=== PATIENT | male | born 1970 | race Caucasian/White ===

== ENCOUNTER 2017-02-18 08:27 | Emergency (ER) | payer MEDICAID ==
[2017-02-18 08:44] VITALS: BP 133/97; RESP 16
--- NOTE | 2017-02-18 08:49 | CPEKG ---
Heart Rate: 48 RR Interval: 1250 P-R Interval: 152 QRSD Interval: 92 QT Interval: 492 QTC Interval: 440 P [place]: 40 QRS [place]: -6 T Wave [place]: 42 EKG Severity - OTHERWISE NORMAL ECG - EKG Impression: SINUS BRADYCARDIA Electronically Signed By: Reji Velazquez 18-Feb-2017 10:36:25
--- NOTE | 2017-02-18 08:55 | EDPHY ---
H & P Time Seen by Provider: 02/18/17 08:40 HPI/ROS: Chief complaint. Abdominal pain HPI. 46-year-old male presents emergency department with chest and abdominal pain that began this morning. He began vomiting 2 days ago and has a history of cyclic vomiting syndrome. He has had similar symptoms previously and this tends to lead to dehydration. He is concerned now about dehydration. His discomfort is described as upper abdomen and dull. No radiation. He has had cups as well as nausea vomiting. No shortness of breath. Symptoms are not worse with exertion or breathing. He was out of Nexium for 2 days before his symptoms started. No cough or fever. ROS Constitutional. no fever/chills, no weakness Eyes. no problems with vision ENT. no sore throat, no nasal drainage Cardiovascular. no chest pain Respiratory. no shortness of breath, no cough Abdominal. Upper abdominal pain with nausea and vomiting . no problems urinating MS. no calf pain/swelling, no neck/back pain, no joint pain Skin. no rash Lymph. no swollen glands Neuro. no headache, no dizziness, no difficulty walking or with speech Past Medical/Surgical History: Past medical history significant for alcoholism, back surgery, GERD, cyclic vomiting syndrome, atrial fibrillation Social History: Single, daily smoker, no alcohol Smoking Status: Current every day smoker Physical Exam: General Appearance: Alert well-developed male moderate distress vital signs are stable Eyes: Pupils equal and round no pallor or injection. ENT, Mouth: Mucous membranes are moist. Respiratory: There are no retractions, lungs are clear to auscultation. Cardiovascular: Regular rate and rhythm. Gastrointestinal: Abdomen is soft with diffuse tenderness along the upper abdomen. No masses. Normal bowel sounds Neurological: Awake and alert, sensory and motor exams grossly normal. Skin: Warm and dry, no rashes. Musculoskeletal: Neck is supple nontender. Extremities symmetrical, full range of motion. Psychiatric: Patient is oriented X 3, there is no agitation. Constitutional: Initial Vital Signs Temperature (C) 36.4 C 02/18/17 08:30 Heart Rate 56 L 02/18/17 08:30 Respiratory Rate 16 02/18/17 08:30 Blood Pressure 133/97 H 02/18/17 08:30 O2 Sat (%) 96 02/18/17 08:30 O2 Delivery Mode Room Air Allergies/Adverse Reactions: No Known Allergies Allergy (Verified 02/18/17 08:41) Home Medications: Medication Instructions Recorded Esomeprazole Mag Trihydrate 40 mg PO DAILY 06/22/15 [Nexium] Esomeprazole Magnesium 40 mg PO DAILY #14 capsule. 02/18/17 Promethazine HCl [Phenergan 25mg 25 mg PO Q4-6PRN PRN #10 tab 02/18/17 (*)] Medical Decision Making - Diagnostics EKG Interpretation: EKG interpreted by me shows sinus bradycardia. Normal interval. Left axis deviation. QRS is otherwise normal. There is no significant ST elevation or depression. The rate is 48 Imaging Results: Imaging Impressions Chest X-Ray 02/18/17 09:04 Impression: Bronchitis with left basilar atelectasis. One-view chest x-ray reviewed by me shows bronchitis with left basilar atelectasis. No evidence for pneumonia Procedures: IV normal saline. Zofran for nausea vomiting. GI cocktail. ED Course/Re-evaluation: Re-evaluation 9:50 a.m.--patient is stable. He says he slightly nauseated still. No vomiting. He is complaining of back pain from the vomiting. He is given IV Toradol and further Zofran. Recheck again 1025 a.m.. No further vomiting. The patient and I discussed laboratory evaluation and imaging study results. We discussed treatment plan including criteria for return importance of follow-up and further evaluation. He expresses understanding and agreement Differential Diagnosis: Patient is a history of cyclic vomiting syndrome. I have considered pancreatitis as well. Considered peptic ulcer disease. I have considered dehydration. I considered acute coronary syndrome - Data Points Laboratory Results: Laboratory Results 02/18/17 08:44 02/18/17 08:44 02/18/17 02/18/17 08:44 08:44 WBC 10.17 10^3/uL H 10^3/uL (3.80-9.50) RBC 4.81 10^6/uL 10^6/uL (4.40-6.38) Hgb 16.1 g/dL g/dL (13.7-17.5) Hct 46.3 % % (40.0-51.0) MCV 96.3 fL fL (81.5-99.8) MCH 33.5 pg pg (27.9-34.1) MCHC 34.8 g/dL g/dL (32.4-36.7) RDW 13.2 % % (11.5-15.2) Plt Count 203 10^3/uL 10^3/uL (150-400) MPV 10.6 fL fL (8.7-11.7) Neut % (Auto) 68.3 % % (39.3-74.2) Lymph % (Auto) 20.3 % % (15.0-45.0) [place] % (Auto) 9.8 % % (4.5-13.0) Eos % (Auto) 1.0 % % (0.6-7.6) Baso % (Auto) 0.3 % % (0.3-1.7) Nucleat RBC Rel Count 0.0 % % (0.0-0.2) Absolute Neuts (auto) 6.95 10^3/uL H 10^3/uL (1.70-6.50) Absolute Lymphs (auto) 2.06 10^3/uL 10^3/uL (1.00-3.00) Absolute Monos (auto) 1.00 10^3/uL H 10^3/uL (0.30-0.80) Absolute Eos (auto) 0.10 10^3/uL 10^3/uL (0.03-0.40) Absolute Basos (auto) 0.03 10^3/uL 10^3/uL (0.02-0.10) Absolute Nucleated RBC 0.00 10^3/uL 10^3/uL (0-0.01) Immature Gran % 0.3 % % (0.0-1.1) Immature Gran # 0.03 10^3/uL 10^3/uL (0.00-0.10) Sodium 136 mEq/L mEq/L (134-144) Potassium 4.2 mEq/L mEq/L (3.5-5.2) Chloride 103 mEq/L mEq/L (97-110) Carbon Dioxide 21 mEq/l L mEq/l (22-31) Anion Gap 12 mEq/L mEq/L (8-16) BUN 18 mg/dL mg/dL (7-23) Creatinine 0.8 mg/dL mg/dL (0.7-1.3) Estimated GFR > 60 Glucose 127 mg/dL H mg/dL (70-100) Calcium 9.6 mg/dL mg/dL (8.5-10.4) Troponin I < 0.012 ng/mL ng/mL (0-0.034) Lipase 65.0 IU/L IU/L (23-300) Medications Given: Discontinued Medications Al Hydroxide/Mg Hydroxide (Maalox Susp) 30 ml PO ONCE ONE Stop: 02/18/17 09:06 Last Admin: 02/18/17 09:13 Dose: 30 ml Hyoscyamine Sulfate (Levsin, Hyomax-Sl) 0.25 mg PO ONCE ONE Stop: 02/18/17 09:06 Last Admin: 02/18/17 09:13 Dose: 0.25 mg Sodium Chloride (Ns) 1,000 mls @ 0 mls/hr IV ONCE ONE; Wide Open PRN Reason: Protocol Stop: 02/18/17 09:13 Last Admin: 02/18/17 09:14 Dose: 1,000 mls Ketorolac Tromethamine (Toradol) 30 mg IVP EDNOW ONE Stop: 02/18/17 09:59 Last Admin: 02/18/17 10:21 Dose: 30 mg Lidocaine (Lidocaine 2% Viscous) 15 ml PO ONCE ONE Stop: 02/18/17 09:06 Last Admin: 02/18/17 09:13 Dose: 15 ml Ondansetron HCl (Zofran) 4 mg IVP EDNOW ONE Stop: 02/18/17 09:59 Last Admin: 02/18/17 10:21 Dose: 4 mg Departure - Departure Disposition: Home, Routine, Self-Care Clinical Impression: Abdominal pain Qualifiers: Abdominal location: epigastric Qualified Code(s): R10.13 - Epigastric pain Cyclical vomiting syndrome Qualifiers: Vomiting Intractability: non-intractable Nausea presence: with nausea Qualified Code(s): G43.A0 - Cyclical vomiting, not intractable Condition: Good Instructions: Acute Nausea and Vomiting (ED) Additional Instructions: Frequent, small sips fluids. Gradual diet advancement. Phenergan as needed for nausea and vomiting. Begin taking your Nexium again as prescribed. Return for worsening symptoms. Recheck in 1 day if not improving Referrals: NONE *PRIMARY CARE P,. [Primary Care Provider] - As per Instructions [facility] [Outside] - 1 day, if not improved Prescriptions: Esomeprazole Magnesium 40 mg PO DAILY #14 capsule. Promethazine HCl [Phenergan 25mg (*)] 25 mg PO Q4-6PRN PRN #10 tab PRN Reason: Nausea/Vomiting, Use 1st
[2017-02-18] MEDS ORDERED: HYOSCYAMINE SULFATE 0.125 MG TAB PO ONE (09:05)
[2017-02-18] MEDS ORDERED: MAG HYDROX/AL HYDROX/SIMETH 30 ML UDCUP PO ONE (09:05)
[2017-02-18] MEDS ORDERED: LIDOCAINE 2% VISCOUS 15 ML UDCUP PO ONE (09:05)
[2017-02-18 09:09] LABS: % IMMATURE GRANULYOCYTES 0.3 % (0.0-1.1); ABSOLUTE IMMATURE GRANULOCYTES 0.03 10^3/uL (0.00-0.10); ADD DIFF? NO; ADD MORPH? NO; ADD SCAN? NO; ATYPICAL LYMPHOCYTE FLAG 20 (0-99); FRAGMENT RBC FLAG 0 (0-99); HEMATOCRIT 46.3 % (40.0-51.0); HEMOGLOBIN 16.1 g/dL (13.7-17.5); LEFT SHIFT FLG 0 (0-99); LIPEMIA HEMOLYSIS FLAG 90 (0-99); MEAN CELL HEMOGLOBIN 33.5 pg (27.9-34.1); MEAN CELL HEMOGLOBIN CONCENTR. 34.8 g/dL (32.4-36.7); MEAN CELL VOLUME 96.3 fL (81.5-99.8); MEAN PLATELET VOLUME 10.6 fL (8.7-11.7); PLATELET CLUMPS FLAG 10 (0-99); PLATELET COUNT 203 10^3/uL (150-400); RED BLOOD CELL COUNT 4.81 10^6/uL (4.40-6.38); RED CELL DISTRIBUTION WIDTH 13.2 % (11.5-15.2)
[2017-02-18] MEDS ORDERED: NS 1,000 ML IV ONE (09:12)
[2017-02-18 09:21] LABS: ANION GAP 12 mEq/L (8-16); CALCIUM 9.6 mg/dL (8.5-10.4); CARBON DIOXIDE 21 mEq/l (22-31); CHLORIDE 103 mEq/L (97-110); CREATININE 0.8 mg/dL (0.7-1.3); GLOMERULAR FILTRATION RATE > 60; GLUCOSE 127 mg/dL (70-100); POTASSIUM 4.2 mEq/L (3.5-5.2); SODIUM 136 mEq/L (134-144)
[2017-02-18 09:33] LABS: TROPONIN I < 0.012 ng/mL (0-0.034)
[2017-02-18] MEDS ORDERED: ONDANSETRON 4 MG/2 ML VIAL IVP ONE (09:58)
[2017-02-18] MEDS ORDERED: KETOROLAC 30 MG/1 ML SDV IVP ONE (09:58)
[2017-02-18 10:59] VITALS: PULSE 50; TEMP 98.4; O2SAT 94
== END 2017-02-18 10:59 | disposition home or self-care (01) ==
DX: G43.A0 Cyclical vomiting, in migraine, not intractable (principal); F17.200 Nicotine dependence, unspecified, uncomplicated; R10.13 Epigastric pain
CPT/HCPCS: 96374; J1885; J2405